=== PATIENT | female | born 1950 | race Caucasian/White ===

== ENCOUNTER 2016-11-10 14:47 | Outpatient (CLI) | payer MEDICARE, OTHER | END 2016-11-10 14:48 | LOC: MADLABBHPM 14:47 | PROVIDERS: ATTEND Family Medicine | DX: R19.7 Diarrhea, unspecified (principal) | CPT/HCPCS: 36415; 83630; 87015; 87045; 87046; 87081; 87177; 87324; 87449; 87899 ==

== ENCOUNTER 2016-12-11 10:57 | Emergency (ER) | payer MEDICARE, MEDICAID ==
[2016-12-11 11:20] LABS: #Basophils 0.1 thou/uL (0.0-0.2); #Eosinphils 0.2 thou/uL (0.0-0.7); #Lymphocytes 2.3 thou/uL (1.20-3.40); #Monocytes 0.6 thou/uL (0.11-0.59); #Neutrophils 4.2 thou/uL (1.40-6.50); %Basophils 0.7 % (0.0-1.0); %Eosinophils 3.4 % (0.0-10.0); %Lymphocytes 30.9 % (21.0-51.0); %Monocytes 7.6 % (0.0-10.0); %Neutrophils 57.3 % (42.0-75.0); Mean Corpuscular HGB CONC 32.4 g/dL (32.0-36.0); Mean Corpuscular Hemoglobin 28.7 pg (27.0-31.0); Mean Corpuscular Volume 88.5 fl (81.0-99.0); Mean Platelet Volume 10.3 fL (7.4-10.4); Platelet Count 147 thou/uL (130-400); RBC Distribution Width 13.1 % (11.5-14.5); Red Blood Cell (RBC) Count 4.54 mill/uL (4.20-5.40); White Blood Cell (WBC) Count 7.4 thou/uL (4.8-10.8)
[2016-12-11 11:31] LABS: INR-International Normal Ratio 1.1; PTT 27.4 SEC (22.9-36.1); Prothrombin Time 14.3 SEC (12.0-14.7)
[2016-12-11 11:40] LABS: ALT (SGPT) 12 U/L (8-55); AST (SGOT) 13 U/L (5-34); Albumin 3.8 g/dL (3.4-4.8); Alkaline Phosphatase 91 U/L (40-150); Anion Gap 15 mmol/L (10-20); BUN (Urea Nitrogen) 20 mg/dL (9.8-20.1); Bilirubin, Total 0.6 mg/dL (0.2-1.2); CK (CPK) 34 U/L (29-168); Calc. Creatinine Clearance 0 mL/min (70-130); Calcium 9.2 mg/dL (7.8-10.44); Carbon Dioxide 25 mmol/L (23-31); Chloride 107 mmol/L (98-107); Estimated GFR-MDRD 64; Globulin 3.1 g/dL (2.4-3.5); Glucose 142 mg/dL (80-115); Magnesium 2.1 mg/dL (1.6-2.6); Potassium 4.2 mmol/L (3.5-5.1); Protein, Total 6.9 g/dL (6.0-8.3); Sodium 143 mmol/L (136-145)
[2016-12-11 11:43] LABS: CKMB 1.1 ng/mL (0-6.6); Troponin I Less than 0.010 ng/mL (< 0.028)
--- NOTE | 2016-12-11 12:17 | RAD ---
CHEST 1 VIEW: Date: 12/11/16 HISTORY: Chest pain. COMPARISON: 12/09/16. FINDINGS: Cardiac silhouette is magnified and enlarged. Pulmonary vasculature is upper limits of normal. Media stinum is midline with aortic calcification. There is no lobar consolidation or evidence of pneumoth orax. groundwater monitoring technician leads overlie the chest. IMPRESSION: 1. Cardiomegaly. 2. Atherosclerosis. POS: [facility]
[2016-12-11] MEDS ORDERED: Atropine Sulfate 1 mg/10 ml Syringe ONE (12:24)
== END 2016-12-11 12:40 | disposition short-term general hospital (02) ==
LOC: MADERS 10:57
DX: R00.1 Bradycardia, unspecified (principal); I10 Essential (primary) hypertension; E11.9 Type 2 diabetes mellitus without complications
CPT/HCPCS: 71010; 80053; 82553; 83735; 83880; 84484; 85025; 85610; 85730; 93005; 94760; 96374; J0461

== ENCOUNTER 2018-04-11 07:56 | Outpatient (CLI) | payer MEDICARE, MEDICAID ==
[2018-04-11 09:07] LABS: ALT (SGPT) 16 U/L (8-55); AST (SGOT) 17 U/L (5-34); Alkaline Phosphatase 102 U/L (40-150); Anion Gap 13 mmol/L (10-20); BUN (Urea Nitrogen) 13 mg/dL (9.8-20.1); Bilirubin, Total 0.6 mg/dL (0.2-1.2); Calc. Creatinine Clearance 0 mL/min (70-130); Calcium 9.5 mg/dL (7.8-10.44); Carbon Dioxide 27 mmol/L (23-31); Cardiac Risk 2.8 (Less than 4.5); Chloride 108 mmol/L (98-107); Cholesterol 111 mg/dl (< 200 Desired); Estimated GFR-MDRD 68; Globulin 3.2 g/dL (2.4-3.5); Glucose 113 mg/dL (80-115); HDL Cholesterol 39 mg/dL (>60 Neg Risk); LDL Cholesterol, Calculated 52 mg/dL; Potassium 3.9 mmol/L (3.5-5.1); Protein, Total 7.2 g/dL (6.0-8.3); Sodium 144 mmol/L (136-145); Triglycerides 98 mg/dL (Less than 150)
[2018-04-11 09:10] LABS: Prothrombin Time 13.3 SEC (12.0-14.7)
[2018-04-11 09:48] LABS: Hemoglobin 14.7 g/dL (12.0-16.0); Mean Corpuscular HGB CONC 31.8 g/dL (32.0-36.0); Mean Corpuscular Volume 84.8 fL (78.0-98.0); Mean Platelet Volume 9.6 fL (7.4-10.4); Platelet Count 190 thou/uL (130-400); RBC Distribution Width 13.8 % (11.5-14.5); Red Blood Cell (RBC) Count 5.45 mill/uL (4.20-5.40); White Blood Cell (WBC) Count 7.1 thou/uL (4.8-10.8)
[2018-04-11 10:33] LABS: Anisocytosis SLIGHT = 6-15 cells (100X) (0-5/hpf); Band 4 % (5-11); Lymphocytes 23 % (21-51); MDiff Complete? YES; Monocytes 6 % (0-10); Neutrophil 67 % (42-75); PLT Morphology Comment Appears Adequate
== END 2018-04-11 07:57 ==
LOC: MADLABBHPM 07:56
PROVIDERS: ATTEND Internal Medicine Cardiovascular Disease
DX: I48.0 Paroxysmal atrial fibrillation (principal); I25.10 Atherosclerotic heart disease of native coronary artery without angina pectoris; Z95.5 Presence of coronary angioplasty implant and graft
CPT/HCPCS: 36415; 80053; 80061; 85007; 85027; 85610

== ENCOUNTER 2019-05-09 13:56 | Outpatient (CLI) | payer MEDICARE ==
--- NOTE | 2019-05-09 14:28 | RAD ---
EXAM: Left Rib series HISTORY: Rib pain COMPARISON: None FINDINGS: Multiple views of the left ribs shows no evidence of displaced rib fracture. No underlying pleural th ickening or pneumothorax are seen. IMPRESSION: 1. No evidence of displaced rib fracture.
== END 2019-05-09 13:57 | disposition home or self-care (01) ==
LOC: MADRAD 13:56
PROVIDERS: ATTEND Family Medicine
DX: R07.81 Pleurodynia (principal)

== ENCOUNTER 2022-08-18 10:43 | Outpatient (CLI) | payer MEDICARE | END 2022-08-18 10:44 | disposition home or self-care (01) | LOC: MADLAB 10:43 | PROVIDERS: ATTEND Registered Nurse | DX: E11.9 Type 2 diabetes mellitus without complications (principal); M54.50 Low back pain, unspecified | CPT/HCPCS: 72100 ==